=== PATIENT | female | born 1985 | race American Indian/Alaskan Native ===

== ENCOUNTER 2020-05-15 14:37 | Emergency (ER) | payer SELFPAY ==
[2020-05-15 14:52] VITALS: BP 121/62
[2020-05-15] MEDS ORDERED: DIPHtheria,PERTUSSIS(ACELL),TETANUS VACCINE/PF 0.5 ML VIAL IM ONE (17:11)
[2020-05-15] MEDS ORDERED: oxyCODONE /ACETAMINOPHEN 5-325MG TAB PO ONE (17:11)
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
[2020-05-15] MEDS ORDERED: LIDOCAINE-MPF (1%) 10 MG/1 ML VIAL 5 ML INFILTRATI ONE (18:33)
== END 2020-05-15 19:27 | disposition home or self-care (01) ==
LOC: ED 14:37
DX: S01.511A Laceration without foreign body of lip, initial encounter (principal); S10.93XA Contusion of unspecified part of neck, initial encounter; T14.8XXA Other injury of unspecified body region, initial encounter; R68.84 Jaw pain; F17.200 Nicotine dependence, unspecified, uncomplicated; Z79.899 Other long term (current) drug therapy; W22.8XXA Striking against or struck by other objects, initial encounter; Y93.89 Activity, other specified; Y92.89 Other specified places as the place of occurrence of the external cause; Y99.8 Other external cause status
CPT/HCPCS: 70486; 90471; 90715; 99283